=== PATIENT | female | born 1965 | race Caucasian/White ===

== ENCOUNTER 2017-08-03 13:07 | Emergency (ER) | payer OTHER ==
[~2017-08-03] VITALS: Ht 162.6 cm; Wt 83.9 kg
[2017-08-03 14:24] LABS: HEMATOCRIT 47.3 % (36.0-46.0); HEMOGLOBIN 15.8 G/DL (11.9-15.5); MCH 28.8 PG (29.0-34.0); MCHC 33.4 G/DL (30.0-36.0); MCV 86.3 FL (83-99); PLATELET COUNT 253 K/uL (156-360); RBC DIS.WIDTH-CV 13.7 % (11.8-14.6); RBC DIS.WIDTH-SD 43.8 % (39-53); RED BLOOD COUNT 5.48 M/uL (3.80-5.20); WHITE BLOOD COUNT 6.9 K/uL (4.1-10.2)
[2017-08-03 14:33] LABS: CHLORIDE 108 mEq/L (99-109); POTASSIUM 4.3 mEq/L (3.7-5.4); SODIUM 142 mEq/L (136-147)
[2017-08-03 14:35] LABS: GLUCOSE 92 mg/dL (70-99)
[2017-08-03 14:39] LABS: GFR ESTIMATE (CALCULATED) > 59 mL/min/
[2017-08-03 14:40] LABS: UREA NITROGEN (BUN) 9 mg/dL (9-23)
[2017-08-03 14:47] LABS: TROP-I INTERPRETATION NEGATIVE; TROPONIN-I < 0.01 ng/mL (0.0-0.30)
[2017-08-03 20:34] VITALS: BP 175/92
== END 2017-08-03 20:48 | disposition home or self-care (01) ==
LOC: EME 13:07
DX: R51 Headache (principal); H43.399 Other vitreous opacities, unspecified eye; I10 Essential (primary) hypertension; E11.9 Type 2 diabetes mellitus without complications; I25.2 Old myocardial infarction; H91.90 Unspecified hearing loss, unspecified ear; Z88.0 Allergy status to penicillin
CPT/HCPCS: 70450; 71046; 80048; 84484; 85027; 93005; 99281; 99285; J2765